=== PATIENT | female | born 1950 ===

== ENCOUNTER 2024-02-25 13:30 | Inpatient (IN) | payer MEDICARE, OTHER ==
[~2024-02-25 13:30] MED LIST: ACETAMINOPHEN TAB 500 MG TAB ONE; DEXAMETHASONE SOD PHOSPHATE 10 MG/ML 1 ML VIAL ONE; DEXAMETHASONE SOD PHOSPHATE 4 MG/ML 1 ML VIAL ONE; DOCUSATE 100 MG CAP ONE; FAMOTIDINE 20 MG/2 ML VIAL ONE; KETOROLAC 15 MG/ML 1 ML VIAL ONE; MELOXICAM 7.5 MG TAB ONE; MIDAZOLAM 2 MG/2 ML VIAL ONE; ONDANSETRON 4 MG/2 ML VIAL ONE; ROPIVACAINE 5 MG/ML 30 ML VIAL ONE; oxyCODONE ER 10 MG TAB.ER.12H PO ONE
[2024-02-25] MEDS ORDERED: SENNOSIDES-DOCUSATE SODIUM 1 EACH TAB PO ONE ×2 (22:42)
[2024-02-25] MEDS ORDERED: ASPIRIN 81 MG ONE ×2 (22:42)
[2024-02-26] MEDS ORDERED: HYDROcodone/APAP 5-325MG 1 EACH TAB ONE ×4 (04:43→12:39)
[2024-02-26] MEDS ORDERED: ASPIRIN 81 MG ONE ×2 (08:19)
[2024-02-26] MEDS ORDERED: DOCUSATE 100 MG CAP ONE (08:24)
[2024-02-26] MEDS ORDERED: PANTOPRAZOLE 40 MG TABLET PO ONE ×2 (09:37)
--- NOTE | 2024-03-03 15:55 | OP ---
OPERATIVE REPORT DATE OF SERVICE : 02/25/2024 PREOPERATIVE DIAGNOSIS: Left hip osteoarthritis. POSTOPERATIVE DIAGNOSIS: Left hip osteoarthritis. PROCEDURE PERFORMED: Left direct anterior total hip arthroplasty. TRUCKER HAND: Jon Rojas PA-C. (He is a skilled assist who was required due to the complexity of surgery for patient positioning, draping, exposure, retraction, closure of wound, and application of dressing). IMPLANTS: 1. Kenny Trident II acetabular shell 46 mm. 2. Elmer Insignia size #3 standard offset femoral stem. 3. Dual mobility liner 36 mm outer diameter head, 22.2 mm inner diameter head with a +0 mm neck. ANESTHESIA: General plus block. BLOOD LOSS: 200 mL crystalloids. FLUIDS: 800 mL crystalloids. INDICATION: The patient is a very pleasant adult female, who presented to my office for a long- standing history of pain in her left hip. She had previously undergone a right total hip replacement through a posterior approach and had done relatively well with this. She presented to my office after seeing another Orthopedics surgeon with ongoing pain in the left hip. She had weightbearing x-rays and an MRI report. Her weightbearing x- ray showed a well-fixed right total hip replacement and mild joint space loss and arthritis in the left hip. Her MRI showed hip arthritis. I had a long discussion with the patient and her . We discussed that her x-rays did show some joint space, but her exam was consistent with hip arthritis as she had pain with passive range of motion. The patient was adamant that her pain felt similar to her right before hip replacement and she wished to proceed with a total hip replacement having done while on the right. We discussed image-guided injections to confirm her hip is the source of the pain, but the patient refused, again stating that she felt like her pain would be best relieved with a hip replacement having had surgery on the contralateral side. Both the patient and her acknowledged this and her x-ray findings. They both requested proceeding with surgery. We had a long discussion on the potential risks and complications of an elective hip replacement through an anterior approach. Risks discussed include, but are certainly not limited to, risks from anesthesia, supra-fistula infection, deep periprosthetic joint infection, delayed wound healing, requiring local wound care or revision closure, damage to local blood vessels or nerves including the femoral nerve, lateral femoral cutaneous nerve, dislocation, fracture, instability, leg length discrepancy where requiring revision surgery, dissatisfaction with surgical outcome, continued to worsen pain, DVT, PE, other medical complications, and possible loss of life or limb. The patient and her understand these are the most common complications after hip replacement. There are other less common complications possible. They provided both their verbal and written consent to go forward with surgery. DESCRIPTION OF PROCEDURE: The patient was identified in preoperative holding and the correct left leg was marked with my initials. I reviewed the consent form with the patient and her . All their questions were answered. A block was placed by Anesthesia. The patient was then brought back to the operating room. She was positioned on the OR table where a general anesthetic, preoperative antibiotics, and tranexamic acid were given. Hair over the anterior aspect of the left hip was removed with the clippers. I felt her preoperative leg length at the malleoli and she felt slightly short on the left. The patient then had boots for the Bethel table applied. The patient was then carefully transferred on to the Bethel table. A perineal post was immediately placed. Both arms were placed at the side and were well secured and padded. Nonsterile drapes were applied. The left was elevated and the both legs were externally rotated to 30 degrees. A time-out was performed, identifying the correct patient, operative extremity, and procedure. At this point, C-arm fluoroscopy was brought in and a metallic bar was used to create a bi- ischial line for reference the leg length and offset adjustments during surgery. Fluoroscopy was then brought out. The left leg was then prepped and draped in the standard sterile fashion. I began by marking out a standard longitudinal direct anterior incision marking. The incision started 1 fingerbreadth distal and 3 fingerbreadths lateral to the ASIS and extended distal and slightly lateral. Skin incision was made with a scalpel. Dissection was carried down to the subcutaneous tissue with electrocautery to the fascia over the tensor muscle. The fascia over the tensor muscle was incised sharply and I bluntly developed the interval between the tensor and sartorius. A blunt-tipped Cobra was placed over the superior femoral neck under the muscle fibers of gluteus minimus. I then incised through the floor of the fascia with electrocautery. The vessels were identified proximally and controlled with Aquamantys. A second blunt-tipped Cobra retractor was placed inferior to the femoral neck. I then carefully developed the interval between the hip joint capsule and the rectus femoris. A Hohmann retractor was placed over the anterior rim of the pelvis. At this point, an anterior capsulotomy was performed. There was a moderate amount of clear synovial fluid. The superior capsular flap was elevated and the blunt-tipped Cobra was placed within the capsule superior to the neck. I then released and removed the inferior capsular flap down to the level of the lesser trochanter. The blunt-tipped Cobra was placed inferior to the neck. At this point, I marked out the femoral neck cut and accordance of templating. A sagittal saw was then used to carefully make the femoral neck cut. With the use of the Bethel table, gentle traction was pulled, the leg was externally rotated to 40 degrees and 2 clicks of fine traction were applied. The head was easily removed with a corkscrew device. On inspection of the femoral head, there were several areas of full thickness cartilage loss. The acetabulum was then circumferentially exposed. The superior capsular flap was excised. The acetabulum was debrided free of osteophytes and labrum. Retractors were placed. I removed the pulvinar to fully visualized the cotyloid fossa. On inspection of the acetabulum, similar to the femoral head, there were several areas of full thickness cartilage loss. I then sequentially reamed until I had medialized to the floor of the cotyloid fossa and there was an excellent bleeding bed of bone. A 46 mm cup was dispensed. The socket was gently placed into the acetabulum. Fluorsoscopy was brought in and under fluoroscopic guidance, I fully seated the cut taking care to place the cap in appropriate anteversion and inclination. Once the hip socket had been fully medialized, it was stable. I augmented the Press-fit with a single screw. A dual mobility liner was then gentle tapped in place. Attention was then turned to exposure of the femur. The remnant of the dorsolateral capsule was released off the trochanter. A hook was placed under the femur and secured to the elevating arm and hydraulic lift. The leg was externally rotated and a Gross retractor was placed over the calcar. I confirmed the traction was off and the left was dropped to the floor. Using the hydraulic lift, the femur was elevated to allow for broaching. I had excellent visualization of the femur. Entrance to the femoral canal was achieved with a box osteotome and blunt tip canal sound. I then sequentially broached in appropriate version until a size #3 broach felt stable. The neck cut was flushed to the broach with a calcar planer. The wound was thoroughly irrigated. A trial neck and head was applied. The hip was reduced and externally rotated to 90 degrees and appeared stable. Fluoroscopy was brought in and x-rays were obtained, calculating adjustments and leg length and offset. The hip was then carefully dislocated and the femur was again exposed. All trial implants were removed. The final stem was gently tapped into place nicely engaging the Press-fit. A final head was tapped on the trunnion and the hip was finally reduced. The hip was stable to 90 degrees of external rotation. Final fluoroscopic images were taken shown a well-seated stem with good fit, no evidence of fracture. A final AP pelvis with a bi-ischial bar was taking to assess changes in leg length and offset. The wound was then thoroughly irrigated and soaked with a dilute Betadine rinse. Local anesthetic cocktail was injected around the tissue. The wound was closed in layers and a dressing was applied. I verified that all instrument, sponge, and sharp counts were correct. The patient was then transferred off the Bethel table to a gurney and extubated. After the boots were removed, her leg lengths felt even. The patient was then carefully taken to the postanesthesia care unit having tolerated the procedure well. [id number] / IJN: [id number] /
== END 2024-02-26 13:05 | disposition home or self-care (01) | DRG 470 ==
LOC: OR 13:30 → 4SSUR 18:54
PROVIDERS: ADMIT Orthopaedic Surgery; ATTEND Orthopaedic Surgery
PROC: 0SRB0JA Replacement of Left Hip Joint with Synthetic Substitute, Uncemented, Open Approach (ICD-10-PCS; principal; 2024-02-25)
DX: M16.12 Unilateral primary osteoarthritis, left hip (principal); Z79.899 Other long term (current) drug therapy